=== PATIENT | female | born 1950 | race Caucasian/White ===

== ENCOUNTER 2017-09-20 19:47 | Emergency (ER) | payer OTHER ==
[~2017-09-20] VITALS: Ht 154.9 cm; Wt 67.6 kg
[2017-09-20 22:44] VITALS: BP 154/77
== END 2017-09-20 21:48 | disposition home or self-care (01) ==
LOC: ED 19:47
DX: M54.2 Cervicalgia (principal); M79.644 Pain in right finger(s); I10 Essential (primary) hypertension; R51 Headache; E78.00 Pure hypercholesterolemia, unspecified; Z88.6 Allergy status to analgesic agent; V89.2XXA Person injured in unspecified motor-vehicle accident, traffic, initial encounter; Y93.89 Activity, other specified; Y92.89 Other specified places as the place of occurrence of the external cause; Y99.8 Other external cause status

== ENCOUNTER 2019-09-29 21:38 | Emergency (ER) | payer OTHER ==
[~2019-09-29] VITALS: Ht 152.4 cm; Wt 59.9 kg
[2019-09-29 21:41] VITALS: Ht 152.4 cm; Wt 59.9 kg
[2019-09-30 01:56] VITALS: BP 132/70
== END 2019-09-30 01:56 | disposition home or self-care (01) ==
LOC: ED 21:38
DX: M79.601 Pain in right arm (principal); M25.511 Pain in right shoulder; M25.521 Pain in right elbow; E78.00 Pure hypercholesterolemia, unspecified; Z88.6 Allergy status to analgesic agent
CPT/HCPCS: J2270; J2405